=== PATIENT | male | born 1980 | race Caucasian/White ===

== ENCOUNTER 2022-07-23 11:25 | Outpatient (CLI) | payer SELFPAY | END 2022-07-23 11:26 | disposition home or self-care (01) | LOC: LABBT 11:25 | PROVIDERS: ATTEND Orthopaedic Surgery | DX: S93.326A Dislocation of tarsometatarsal joint of unspecified foot, initial encounter (principal); S82.62XA Displaced fracture of lateral malleolus of left fibula, initial encounter for closed fracture; Z20.822 Contact with and (suspected) exposure to COVID-19 | CPT/HCPCS: 87811 ==

== ENCOUNTER 2022-07-26 06:03 | Day surgery (SDC) | payer OTHER ==
[2022-07-24 10:35] VITALS: BMI 26.4
[2022-07-26] MEDS ORDERED: Lidocaine 1% MPF 2 ML VIAL ONE ×2 (06:22→06:45)
[2022-07-26] MEDS ORDERED: Sodium Chloride 0.9% 100 ML ONE (06:22)
[2022-07-26] MEDS ORDERED: CEFAZOLIN 2 GM VIAL ONE (06:22)
[2022-07-26] MEDS ORDERED: fentaNYL Citrate/PF 100 MCG/2 ML SYRINGE ONE (06:40)
[2022-07-26] MEDS ORDERED: Fentanyl 100 MCG/2 ML VIAL ONE ×2 (07:11→09:32)
[2022-07-26] MEDS ORDERED: Midazolam HCl 2 mg/2 ml Vial ONE (07:11)
[2022-07-26] MEDS ORDERED: HYDROmorphone 2 MG/ML VIAL ONE (08:37)
== END 2022-07-26 11:15 | disposition home or self-care (01) ==
LOC: SDC 06:03
PROVIDERS: ATTEND Orthopaedic Surgery
PROC: 0QSK04Z Reposition Left Fibula with Internal Fixation Device, Open Approach (ICD-10-PCS; principal; 2022-07-26)
PROC: 0SSG04Z Reposition Left Ankle Joint with Internal Fixation Device, Open Approach (ICD-10-PCS; principal; 2022-07-26)
PROC: 0QSP04Z Reposition Left Metatarsal with Internal Fixation Device, Open Approach (ICD-10-PCS; principal; 2022-07-26)
DX: S93.325A Dislocation of tarsometatarsal joint of left foot, initial encounter (principal); S93.432A Sprain of tibiofibular ligament of left ankle, initial encounter; S82.62XA Displaced fracture of lateral malleolus of left fibula, initial encounter for closed fracture; X58.XXXA Exposure to other specified factors, initial encounter; Y29.XXXA Contact with blunt object, undetermined intent, initial encounter
CPT/HCPCS: 76000; C1713; C1776; C1874; J0690; J1170; J2250; J3010; J3490

== ENCOUNTER 2022-11-27 10:06 | Day surgery (SDC) | payer OTHER ==
[2022-11-26 09:20] VITALS: BMI 29.0
[2022-11-27] MEDS ORDERED: Midazolam HCl 2 mg/2 ml Vial ONE (13:00)
[2022-11-27] MEDS ORDERED: Fentanyl 250 MCG/5 ML VIAL ONE (13:00)
[2022-11-27] MEDS ORDERED: CEFAZOLIN 2 GM VIAL ONE (13:17)
[2022-11-27] MEDS ORDERED: Sodium Chloride 0.9% 100 ML ONE (13:17)
[2022-11-27] MEDS ORDERED: Bupivacaine HCl 0.5%/Epinephrine 1:200,000/PF 30 ml Vial ONE (13:23)
[2022-11-27] MEDS ORDERED: Lidocaine 1% PF 5 ML VIAL ONE (13:26)
[2022-11-27] MEDS ORDERED: Dexamethasone 20 MG/5 ML VIAL ONE (13:26)
[2022-11-27] MEDS ORDERED: Ondansetron PF 4 MG/2 ML Vial ONE (13:26)
[2022-11-27] MEDS ORDERED: PROPOFOL 200 MG/20 ML VIAL ONE (13:26)
== END 2022-11-27 15:30 | disposition home or self-care (01) ==
LOC: SDC 10:06
PROVIDERS: ATTEND Orthopaedic Surgery
PROC: 0QPN04Z Removal of Internal Fixation Device from Right Metatarsal, Open Approach (ICD-10-PCS; principal; 2022-11-27)
DX: T84.84XA Pain due to internal orthopedic prosthetic devices, implants and grafts, initial encounter (principal); Z87.891 Personal history of nicotine dependence; Y79.3 Surgical instruments, materials and orthopedic devices (including sutures) associated with adverse incidents
CPT/HCPCS: J1100; J2250; J2405; J2704; J3010; J3490